=== PATIENT | female | born 1965 | race Hispanic/Latino ===

== ENCOUNTER 2017-01-29 06:27 | Emergency (ER) | payer MEDICARE ==
[2017-01-29 06:41] VITALS: BMI 27.2
[2017-01-29 06:49] VITALS: RESP 18
[2017-01-29] MEDS ORDERED: Sodium Chloride 0.9% 1,000 ML IV STA (07:29)
--- NOTE | 2017-01-29 07:35 | ED PDOC ---
Arrival/HPI - General Chief Complaint: Headache Time Seen by Provider: 01/29/17 07:13 Historian: Patient - History of Present Illness Narrative History of Present Illness (Text): 01/29/17 07:28 A 51 year old female, whose past medical history includes anemia, fibroid uterus , anxiety and metrorrhagia, presents to the emergency department complaining of a mild frontal headache for 1 day. Patient notes associated lightheadedness. Patient put ice on her forehead and states her symptoms have improved since her arrival to the emergency room. Patient reports she is able to run around after her 1 and 3 year old grandchildren without getting weak, dizzy or exerted. Patient denies any fever, chills, nausea, vomiting, abdominal pain, vaginal bleeding, chest pain, shortness of breath or any other complaints. PMD: Dr. Walter Time/Duration: 24 hours Symptom Course: Unchanged Quality: Other Context: Home Past Medical History - Provider Review Nursing Documentation Reviewed: Yes - Infectious Disease Hx of Infectious Diseases: None - Cardiac Hx Cardiac Disorders: No - Pulmonary Hx Respiratory Disorders: No - HEENT Hx HEENT Disorder: No - Renal Hx Renal Disorder: No - Endocrine/Metabolic Hx Endocrine Disorders: No - Hematological/Oncological Hx Anemia: Yes Other/Comment: HEAVY VAGINAL BLEEDING - Musculoskeletal/Rheumatological Hx Falls: No - Genitourinary/Gynecological Hx Genitourinary Disorders: No Other/Comment: X2 - Psychiatric Hx Anxiety: Yes Hx Depression: Yes Hx Panic Disorder: Yes Hx Substance Use: No Other/Comment: PANIC DISORDER - Surgical History Hx Section: Yes (x 2) - Anesthesia Hx Anesthesia: Yes Hx Anesthesia Reactions: No Hx Malignant Hyperthermia: No Family/Social History - Physician Review Nursing Documentation Reviewed: Yes Family/Social History: No Known Family HX Smoking Status: Never Smoked Hx Alcohol Use: No Hx Substance Use: No Allergies/Home Meds Allergies/Adverse Reactions: Allergies epinephrine Adverse Reaction (Verified 01/29/17 07:12) PAIN Pt states she feels she would get palpitations from Epinephrine due to her anxiety and panic attacks Sulfa (Sulfonamide Antibiotics) Adverse Reaction (Verified 08/23/15 15:25) WHEEZING also watery eyes Home Medications: Home Meds Medication Instructions Recorded Confirmed Ferrous Sulfate [Feosol] 1 tab PO DAILY 08/23/15 01/29/17 Physical Exam - Physical Exam Narrative Physical Exam (Text): - Review of Systems Constitutional: Normal. absent: Fatigue, Weight Change, Fevers Eyes: Normal ENT: Normal Respiratory: Normal absent: SOB, Cough, Sputum Cardiovascular: Normal absent: Chest pain, Palpitations, Syncope Gastrointestinal: Normal absent: Abdominal pain, Diarrhea, Nausea, Vomiting Genitourinary: Normal. absent: Dysuria, Frequency, Hematuria, Vaginal bleeding Musculoskeletal: Normal. absent: Arthralgias, Back Pain, Neck Pain Skin: Normal Neurological: (+) Headache, Lightheadedness absent: Focal Weakness Endocrine: Normal Hemo/Lymphatic: Normal Psychiatric: Normal - Physical exam Patient appears age appropriate, speaking full sentences without difficulty - Systems Exam Head: Present: Atraumatic, Normocephalic Pupils: Present: PERRL Extraocular Muscles: Present: EOMI Conjunctiva: Present: Normal Mouth: Present: Moist Mucous Membranes Neck: Present: Normal Range of Motion. No: MIDLINE TENDERNESS, Paraspinal Tenderness Respiratory/Chest: Present: Clear to Auscultation, Good Air Exchange. No: Respiratory Distress, Accessory Muscle Use, Tachypnic Cardiovascular: Present: Regular Rate and Rhythm, Normal S1, S2, Peripheral Pulses Present. No: Murmurs Abdomen: Present: Normal Bowel Sounds, No: Tenderness, Peritoneal Signs, Rebound, Guarding, Distention Back: Present: Normal Inspection. No: Midline Tenderness, Paraspinal Tenderness Upper Extremity: Present: Normal Inspection. No: Cyanosis, Edema Lower Extremity: Present: Normal Inspection. No: Edema Neurological: Present: GCS=15, Speech Normal, cranial nerves II through XII fully intact with no cerebellar abnormality, neuro-sensory fully intact. No focal neurological deficits. Skin: Present: Warm, Dry, Normal Color. No: Rashes Lymphatic: Present: OX3, NI, NC Psychiatric: Present: Alert, Oriented x 3, Normal Insight, Normal Concentration Vital Signs Reviewed: Yes Vital Signs Temp Pulse Resp BP Pulse Ox 01/29/17 06:45 98.0 F 85 18 128/69 100 01/29/17 06:39 98.0 F 85 16 128/69 100 Temperature: Afebrile Blood Pressure: Normal Pulse: Regular Respiratory Rate: Normal Appearance: Positive for: Well-Appearing, Non-Toxic, Comfortable Pain Distress: None Mental Status: Positive for: Alert and Oriented X 3 Medical Decision Making ED Course and Treatment: 01/29/17 07:29 Impression: A 51 year old female with a headache and lightheadedness. Physical exam unremarkable. Differential Diagnosis included but are not limited to: Anemia vs. Dehydration Plan: -- Labs -- Toradol, IV fluids -- Reassess and disposition Prior Visits: Notes and results from previous visits were reviewed. Patient last seen in the ED on 08/30/15 for anemia. Progress Notes: 01/29/17 07:55 On re-evaluation, patient states her headache has resolved and does not want to take Toradol. 01/29/17 08:26 pt in no distress states she still has a slight headache pt advised to obtain a CT of head, but refused pt has no focal neurological deficits on reevaluation states she feels comfortable being dc'd home with outpatient f/u Hb normal EKG shows normal sinus 86bpm, normal intervals, no ST-segment elevation. interpreted by me. no change vs 08/23/15 Pt states she understands to return to the ER right away for new or worsening symptoms or for inability to f/u with PMD or specialist as instructed. Patient states that she fully agrees with and understands discharge instructions. States that she agrees with the plan and disposition. Verbalized and repeated discharge instructions and plan. I have given the patient opportunity to ask any additional questions. - Lab Interpretations Lab Results: 01/29/17 07:38 01/29/17 07:38 Lab Results 01/29/17 07:38: Sodium 141, Potassium 4.1, Chloride 103, Carbon Dioxide 28, Anion Gap 14, BUN 15, Creatinine 0.7, Est GFR ( Amer) > 60, Est GFR (Non- Af Amer) > 60, Random Glucose 95, Calcium 9.5, Total Bilirubin 0.5, AST 27, ALT 27, Alkaline Phosphatase 80, Total Protein 8.2, Albumin 4.3, Globulin 3.9, Albumin/Globulin Ratio 1.1 01/29/17 07:38: PT 10.7, INR 0.99, APTT 27.7 01/29/17 07:38: WBC 4.8 D, RBC 4.94, Hgb 13.1, Hct 41.1, MCV 83.2, MCH 26.5, MCHC 31.9, RDW 17.1 H, Plt Count 279, MPV 9.9, Gran % 61.8, Lymph % (Auto) 27.8 , Marion % (Auto) 7.5 H, Eos % (Auto) 2.9, Baso % (Auto) 0.0, Gran # 2.96, Lymph # 1.3, Marion # 0.4, Eos # 0.1, Baso # 0.00 I have reviewed the lab results: Yes - Medication Orders Current Medication Orders: Discontinued Medications Sodium Chloride (Sodium Chloride 0.9%) 1,000 mls @ 1,000 mls/hr IV .Q1H STA Stop: 01/29/17 08:28 Last Admin: 01/29/17 07:38 Dose: 1,000 mls/hr Ketorolac Tromethamine (Toradol) 15 mg IVP STAT STA Stop: 01/29/17 07:30 Last Admin: 01/29/17 07:38 Dose: Not Given Non-Admin Reason: Patient Refused - Scribe Statement The provider has reviewed the documentation as recorded by the Navya Smith Provider Scribe Attestation: All medical record entries made by the Scribe were at my direction and personally dictated by me. I have reviewed the chart and agree that the record accurately reflects my personal performance of the history, physical exam, medical decision making, and the department course for this patient. I have also personally directed, reviewed, and agree with the discharge instructions and disposition. Disposition/Present on Arrival - Present on Arrival Any Indicators Present on Arrival: No History of DVT/PE: No History of Uncontrolled Diabetes: No Urinary Catheter: No History of Decub. Ulcer: No History Surgical Site Infection Following: None - Disposition Have Diagnosis and Disposition been Completed?: Yes Diagnosis: Lightheaded Disposition: HOME/ ROUTINE Disposition Time: 08:24 Patient Plan: Discharge Patient Problems: Current Active Problems Problem Status Onset Lightheaded Acute Condition: GOOD Discharge Instructions (ExitCare): Lightheadedness (ED), General Headache (ED) Additional Instructions: PLEASE FOLLOW UP WITH YOUR PRIMARY AND INFORMATION SECURITY ANALYST PHYSICIAN IN 1-2 DAYS RETURN TO THE ER RIGHT AWAY FOR NEW OR WORSENING SYMPTOMS OR IF YOU CANNOT FOLLOW UP INSTRUCTED Referrals: Ron Walter MD [Primary Care Provider] - Follow up with primary Forms: [employer] ([place])
[2017-01-29 07:48] LABS: EOS # 0.1 (0.0-0.7); EOS % 2.9 % (1.5-5.0); GRAN # 2.96 (1.4-6.5); GRAN % 61.8 % (50.0-68.0); HEMOGLOBIN 13.1 gm/dL (12.0-16.0); LYMPH # 1.3 (1.2-3.4); LYMPH % 27.8 % (22.0-35.0); MEAN CELL VOLUME 83.2 fL (80.0-105.0); MEAN CORPUSCULAR HEMOGLOBIN 26.5 pg (25.0-35.0); MEAN CORPUSCULAR HGB CONC 31.9 g/dl (31.0-37.0); MEAN PLATELET VOLUME 9.9 fl (7.0-11.0); MONO # 0.4 (0.1-0.6); MONO % 7.5 % (1.0-6.0); PLATELET COUNT 279 10^3/uL (120.0-450.0); RBC 4.94 10^6/uL (3.5-6.1); RED CELL DISTRIBUTION WIDTH 17.1 % (11.5-14.5); WHITE BLOOD COUNT 4.8 10^3/ul (4.5-11.0)
[2017-01-29 08:01] LABS: ALB/GLOB RATIO 1.1 (1.1-1.8); ALBUMIN 4.3 g/dL (3.0-4.8); ALT/SGPT 27 U/L (7-56); AST/SGOT 27 U/L (15-39); BLOOD UREA NITROGEN 15 mg/dL (7-21); CALCIUM 9.5 mg/dL (8.4-10.5); GFR AFRICAN-AMERICAN > 60; GFR NON-AFRICAN AMERICAN > 60
[2017-01-29 08:03] LABS: INR 0.99 (0.93-1.08); PARTIAL THROMBOPLASTIN TIME 27.7 Seconds (23.7-30.8); PROTHROMBIN TIME 10.7 Seconds (9.9-11.8)
[2017-01-29 08:43] VITALS: BP 118/73; PULSE 72; TEMP 98; O2SAT 99
== END 2017-01-29 08:44 | disposition home or self-care (01) ==
LOC: ED 06:27
DX: R42 Dizziness and giddiness (principal); D64.9 Anemia, unspecified
CPT/HCPCS: 80053; 85025; 85610; 85730; 96360; 99285; J7040